=== PATIENT | male | born 1980 | race African-American/Black ===

== ENCOUNTER 2020-12-31 14:34 | Emergency (ER) | payer MEDICAID, OTHER ==
[~2020-12-31] VITALS: Ht 182.9 cm; Wt 129.7 kg
[2020-12-31 14:43] VITALS: BP 126/72
--- NOTE | 2020-12-31 14:52 | NUR ---
40 YEAR OLD MALE COMPLAINS OF PANIC ATTACK EARLIER TODAY. PT STATES THAT HE HAS ONE VOICE IN HIS HEAD THAT WANTS TO STAY ALIVE, BUT THE OTHER PERSON DOES NOT CARE ANYMORE. PT STATES THAT HE JUST "WANTS TO GET HLEP AND TALK TO SOMEONE". WHEN PT ASKED IF HE FEELS SI/HI, HE STATES HE STATES HE IS UNSURE. PT STATES 3X SUICIDE ATTEMPTS IN PAST. PT AOX4, BREATHING EVEN AND UNLABORED, SKIN WARM AND DRY. BED IN LOWEST POSITION, LOCKED, BED RAIL UPX1. PMH - DEPRESSION, PANIC ATTACK ALLERGIES - PCN
--- NOTE | 2020-12-31 14:52 | NUR ---
51/[address] PT, GETTING READY FOR TELEPSYCHE
--- NOTE | 2020-12-31 15:00 | NUR ---
PT DENIES BLOOD WITHDRAWAL, ERMD MADE AWARE
--- NOTE | 2020-12-31 15:02 | NUR ---
TELEPSYCH SET UP AT BEDSIDE.
--- NOTE | 2020-12-31 15:09 | NUR ---
DR. TURNER AT BEDSIDE FOR EVALUATION.
--- NOTE | 2020-12-31 15:20 | NUR ---
PT STATES HE DOES NOT WANT TO DO TESTS, WANTS TO GO AFTER ALL AND DOES NOT WANT TO STAY HERE. ERMD AT BEDSIDE. PT LEFT FACILITY WITHOUT SIGNING PAPERWORK.
[2020-12-31 15:26] VITALS: BP 126/72
== END 2020-12-31 15:20 | disposition left against medical advice (07) ==
LOC: MED 14:34
DX: F41.9 Anxiety disorder, unspecified (principal); F32.9 Major depressive disorder, single episode, unspecified; F17.210 Nicotine dependence, cigarettes, uncomplicated; Z88.0 Allergy status to penicillin
CPT/HCPCS: 99281